=== PATIENT | female | born 1980 | race Caucasian/White ===

== ENCOUNTER 2019-11-15 17:21 | Emergency (ER) | payer OTHER ==
[~2019-11-15] VITALS: Ht 157.5 cm; Wt 49.9 kg
[2019-11-15 17:34] VITALS: BP 137/97
--- NOTE | 2019-11-15 17:43 | NUR ---
PT PLACED ON LOBBY, CHARGE NURSE AWARE.
--- NOTE | 2019-11-15 18:20 | NUR ---
[facility] aware of patient. Please call [phone] for assistance or fax packet to [phone] for asssistance with placement if needed
--- NOTE | 2019-11-15 19:29 | NUR ---
PT AMBULATED TO ER BED 05
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
[2019-11-15] MEDS ORDERED: NACL 0.9% 1,000 ML IV ONE (19:45)
--- NOTE | 2019-11-15 20:01 | NUR ---
PT AMBULATED TO RESTROOM AND URINE WAS COLLECTED AT THIS TIME.
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
[2019-11-15 20:38] LABS: BASOPHILS % (AUTO) 0.4 % (0.0-2.0); EOSINOPHILS % (AUTO) 0.2 % (0.0-4.0); HEMATOCRIT 40.6 % (36-48); HEMOGLOBIN 13.5 g/dL (12.0-16.0); LYMPHOCYTES # (AUTO) 2.7 K/uL (2.5-16.5); LYMPHOCYTES % (AUTO) 31.6 % (20.5-51.1); MEAN CORPUSCULAR HEMOGLOBIN 32 pg (27-31); MEAN CORPUSCULAR HGB CONC 33 g/dL (33-37); MEAN CORPUSCULAR VOLUME 97.2 fL (80-94); MONOCYTES # (AUTO) 0.9 K/uL (0.8-1.0); MONOCYTES % (AUTO) 10.1 % (1.7-9.3); NEUTROPHILS # (AUTO) 4.9 K/uL (1.8-7.7); NEUTROPHILS % (AUTO) 57.7 % (42.2-75.2); PLATELET COUNT (AUTO) 247 K/uL (140-450); RED BLOOD CELL COUNT(AUTO) 4.18 MIL/uL (4.20-5.40); RED CELL DISTRIBUTION WIDTH 13.5 % (11.6-13.7); WHITE BLOOD COUNT (AUTO) 8.5 K/uL (4.8-10.8)
[2019-11-15 20:43] LABS: BARBITURATE, URINE NEG. ng/ml (NEG <=200); BENZODIAZEPINE, URINE NEG. ng/mL (NEG <=200); CANNABINOID, URINE NEG. ng/mL (NEG <=50); COCAINE, URINE NEG. ng/mL (NEG <=300); OPIATE, URINE NEG. ng/mL (NEG <=2000); PHENCYCLIDINE SCREEN,URINE NEG. ng/mL (NEG <=25)
[2019-11-15 20:55] LABS: ANION GAP 16.6 (8-16); CARBON DIOXIDE 26.5 mmol/L (21-32); CREATININE 0.9 mg/dL (0.6-1.3); POTASSIUM 3.1 mmol/L (3.5-5.1)
[2019-11-15 21:01] LABS: ALBUMIN 4.7 g/dL (3.4-5.0); TOTAL BILIRUBIN 1.3 mg/dL (0.0-1.0)
--- NOTE | 2019-11-15 22:02 | NUR ---
PT STATES "IF MY PHONE DIES I AM GOING TO ". PT SITTING RESTLESSLY IN BED, VSS. WILL CONTINUE TO MONTIOR. DR COTE MADE AWARE OF PT STATUS.
[2019-11-15] MEDS ORDERED: LORazepam 2 MG/ML VIAL IVP ONE (22:15)
--- NOTE | 2019-11-15 22:33 | NUR ---
PT RESTING QUIETLY, VISIBLE RISE AND FALL OF THE CHEST, RR EVEN AND UNLABORED. NO C/O PAIN. VSS. WILL CONTINUE TO MONITOR
--- NOTE | 2019-11-15 23:47 | NUR ---
PATIENT IS QUIETLY RESTING WITH EYES CLOSED. WILL CONTINUE TO MONITOR.
--- NOTE | 2019-11-16 01:34 | NUR ---
PT QUIET AND CALM IN BED, VISIBLE RISE AND FALL OF THE CHEST. RR EVEN AND UNLABORED. VSS. WILL CONTINUE TO MONITOR.
--- NOTE | 2019-11-16 03:08 | NUR ---
PT LAYING WITH EYES CLOSED POSITIONED FOR COMFORT. VISIBLE RISE AND FALL OF THE CHEST. PT AROUSABLE TO NAME. WILL CONTINUE TO MONITOR.
--- NOTE | 2019-11-16 04:58 | NUR ---
RR EVEN AND UNLABORED, PT AROUSABLE TO NAME. PT POSITIONED FOR COMFORT. NO C/O OF ANXIETY. VSS. WILL CONTINUE TO MONITOR.
--- NOTE | 2019-11-16 05:00 | NUR ---
PTS AT BEDSIDE.
[2019-11-16 07:00] VITALS: BP 128/90
--- NOTE | 2019-11-16 07:01 | NUR ---
Patient discharged with v/s stable. Written and verbal after care instructions given and explained. Patient verbalized understanding. Ambulatory with steady gait. All questions addressed prior to discharge. Advised to follow up with PMD.
== END 2019-11-16 07:01 | disposition home or self-care (01) ==
LOC: MED 17:21
DX: R44.3 Hallucinations, unspecified (principal); N92.0 Excessive and frequent menstruation with regular cycle; F15.10 Other stimulant abuse, uncomplicated
CPT/HCPCS: 36415; 76801; 80053; 80305; 84702; 85025; 96374; 99284; J2060; Q0092

== ENCOUNTER 2020-01-03 04:03 | Emergency (ER) | payer OTHER ==
[~2020-01-03] VITALS: Ht 152.4 cm; Wt 40.8 kg
--- NOTE | 2020-01-03 04:05 | NUR ---
PT BIBA TO ER BED 05
[2020-01-03 04:10] VITALS: BP 122/53
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
--- NOTE | 2020-01-03 04:45 | NUR ---
STRAIGHT CATH PERFORMED 15FR. PT TOLERATED PROCEDURE. RECEIVED 5ML RETURN CLEAR YELLOW URINE.
[2020-01-03] MEDS ORDERED: LORazepam 2 MG/ML VIAL IM ONE (04:50)
--- NOTE | 2020-01-03 05:31 | NUR ---
BLOOD DRAWN AND URINE SPECIMEN SENT TO LAB AT THIS TIME
[2020-01-03 05:35] LABS: BARBITURATE, URINE NEG. ng/ml (NEG <=200); BENZODIAZEPINE, URINE NEG. ng/mL (NEG <=200); CANNABINOID, URINE NEG. ng/mL (NEG <=50); COCAINE, URINE NEG. ng/mL (NEG <=300); OPIATE, URINE NEG. ng/mL (NEG <=2000); PHENCYCLIDINE SCREEN,URINE NEG. ng/mL (NEG <=25)
[2020-01-03 05:42] LABS: BASOPHILS % (AUTO) 0.5 % (0.0-2.0); EOSINOPHILS % (AUTO) 0.3 % (0.0-4.0); HEMATOCRIT 42.6 % (36-48); HEMOGLOBIN 14.1 g/dL (12.0-16.0); LYMPHOCYTES # (AUTO) 2.4 K/uL (2.5-16.5); LYMPHOCYTES % (AUTO) 36.9 % (20.5-51.1); MEAN CORPUSCULAR HEMOGLOBIN 32 pg (27-31); MEAN CORPUSCULAR HGB CONC 33 g/dL (33-37); MONOCYTES # (AUTO) 0.6 K/uL (0.8-1.0); MONOCYTES % (AUTO) 9.1 % (1.7-9.3); NEUTROPHILS # (AUTO) 3.5 K/uL (1.8-7.7); NEUTROPHILS % (AUTO) 53.2 % (42.2-75.2); PLATELET COUNT (AUTO) 219 K/uL (140-450); RED BLOOD CELL COUNT(AUTO) 4.34 MIL/uL (4.20-5.40); WHITE BLOOD COUNT (AUTO) 6.6 K/uL (4.8-10.8)
[2020-01-03] MEDS ORDERED: NACL 0.9% 1,000 ML IV ONE (05:50)
--- NOTE | 2020-01-03 05:56 | NUR ---
PT IS BIZARRE AND CONTINUES TO RESPOND TO INTERNAL STIMULI. STATES, "WHERE'S MY IV, I NEED MY IV." PT STILL UNABLE TO PROVIDE A PLAN FOR SAFETY. WILL CONTINUE TO MONITOR.
--- NOTE | 2020-01-03 06:13 | NUR ---
PT AWAKE, LAYING ON BED WITH BLUNT AFFECT. STATES HEARING VOICES. WHEN ASKED ABOUT COMMAND HALLUCINATIONS PT STATES, "THEY ARE JUST TALKING TO ME." PT GUARDED ABOUT ANY SUICIDAL IDEATIONS. PT VSS. WILL CONTINUE TO MONITOR.
[2020-01-03 06:26] LABS: CHLORIDE 102 mmol/L (98-107); POTASSIUM 3.1 mmol/L (3.5-5.1); SODIUM SERUM 142 mmol/L (136-145)
[2020-01-03 06:27] LABS: ANION GAP 16.3 (8-16); CARBON DIOXIDE 26.8 mmol/L (21-32); CREATININE 0.8 mg/dL (0.6-1.3); GFR ARICAN-AMERICAN 104 mL/min (>90); GLUCOSE 105 mg/dL (74-106); TOTAL BILIRUBIN 1.3 mg/dL (0.0-1.0); UREA NITROGEN, BLOOD 16 mg/dL (7-18)
[2020-01-03 06:28] LABS: ALBUMIN 5.2 g/dL (3.4-5.0); ASPARTATE AMINOTRANSFERASE 9 U/L (15-37); SALICYLATE < 2.8 mg/dL (2.8-20.0)
[2020-01-03 06:29] LABS: FREE T4 (FREE THYROXINE) 1.53 ng/dL (0.76-1.46); THYROID STIMULATING HORMONE 2.07 uIU/mL (0.34-3.74)
--- NOTE | 2020-01-03 06:30 | NUR ---
PT ASLEEP ON BED. NO BEHAVIOR ISSUES. WILL CONTINUE TO MONITOR.
[2020-01-03 07:17] VITALS: BP 118/77
--- NOTE | 2020-01-03 07:17 | NUR ---
PT DISCHARGED WITH PAPERWORK. EDUCATED PT REGARDING D/C DIAGNOSIS AND INSTRUCTIONS. PT VERBALIZED UNDERSTANDING. SPOKE WITH [facility] FOR PT'S PICKUP. PT AT LOBBY WAITING FOR PICKUP. PT STABLE CONDITION. AMBULATES WITH STEADY GAIT. ALL QUESTIONS ANSWERED.
== END 2020-01-03 07:17 | disposition home or self-care (01) ==
LOC: MED 04:03
DX: F15.10 Other stimulant abuse, uncomplicated (principal); F60.0 Paranoid personality disorder; R41.0 Disorientation, unspecified
CPT/HCPCS: 36415; 80053; 80305; 81002; 81025; 84439; 84443; 85025; 96360; 96372; 99283; G0480; G0482; J2060; J7030